=== PATIENT | male | born 1970 | race Two or more races ===

== ENCOUNTER 2017-02-04 09:25 | Emergency (ER) | payer OTHER ==
[~2017-02-04] VITALS: Ht 157.5 cm; Wt 72.6 kg
[2017-02-04] MEDS ORDERED: Bupivacaine 0.25% Inj 30ml INJ ONE (09:45)
--- NOTE | 2017-02-04 09:49 | Emergency Room Report ---
History of Present Illness General Chief Complaint: Upper Extremity Injury Source: Patient Present Illness HPI The patient presents after hitting his middle finger with a hammer. This happened half an hour before presentation. He slipped off the tip of his middle finger. He's pain and then. He states his tetanus is up-to-date. He is right-handed. 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 Pain 8-10/10, sharp and stinging, not radiate, constant. No fevers, cough, NVD, other rashes, STAN[place]. Concerned. 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 Reviewed Nursing Documentation: PMH: Agreed, PSxH: Agreed Nursing Documentation-PMH Past Medical History: No Stated History Review of Systems All Other Systems: negative except mentioned in HPI Physical Exam Vital Signs Date Time Temp Pulse Resp B/P Pulse Ox O2 Delivery O2 Flow Rate FiO2 02/04/17 09:33 98.2 89 20 127/78 100 Room Air Sp02 EP Interpretation: reviewed, normal General Appearance: well appearing, no apparent distress Head: normocephalic, atraumatic Eyes: bilateral eye PERRL, bilateral eye normal inspection ENT: hearing grossly normal, normal voice, moist mucus membranes Neck: full range of motion, supple Respiratory: no respiratory distress, speaking full sentences Cardiovascular #1: regular rate, rhythm, no edema Cardiovascular #2: 2+ radial (R) Gastrointestinal: normal inspection Musculoskeletal: gait/station normal, normal range of motion, other - middle finger tip with avulsed nail and tip amputated. No arterial bleeding. Neurologic: alert, normal gait Psychiatric: mood/affect normal Skin: other - avulsed tip brought in Medical Decision Making ER Course Patient with amputated finger tip. Piece placed in bag on ice/water (doubt it will be used). Needs hand surgery. Either rongeur or other procedure. No need for x-ray. Digital block with bupivicaine. Good relief. Multiple calls to plastic and hand surgeons. N/A. Antibiotics begun. Dr. Coy will use grafting procedure. Not on staff here. Requests transfer to [facility]. Accepted by Dr. Lemons in the ED. Status: improved Disposition: XFER SHT-TRM HOSP - stable for transfer [place] Condition: Serious Junito Quan M.D. February 04, 2017 09:49
[2017-02-04 09:54] VITALS: BP 121/76
[2017-02-04] MEDS ORDERED: NKM (10:29)
[2017-02-04] MEDS ORDERED: Cephalexin 500mg cap ORAL ONE (12:45)
[2017-02-04 14:30] VITALS: BP 110/71
[2017-02-04 16:21] VITALS: BP 126/80
== END 2017-02-04 16:00 | disposition short-term general hospital (02) ==
LOC: EMR 10:10
DX: S68.122A Partial traumatic metacarpophalangeal amputation of right middle finger, initial encounter (principal); W22.8XXA Striking against or struck by other objects, initial encounter; Y93.9 Activity, unspecified; Y99.0 Civilian activity done for income or pay